=== PATIENT | male | born 1985 | race Caucasian/White ===

== ENCOUNTER 2016-11-25 15:04 | Day surgery (SDC) | payer MEDICAID ==
[~2016-11-25] VITALS: Ht 172.7 cm; Wt 64.5 kg
[~2016-11-25 15:04] MED LIST: BUPIVACAINE/PF-EPI 0.5% 1:200K ONE; CEFAZOLIN 1,000 MG ONE; CEPH-376 PO; IBUP800T PO; METH750T87 PO; ONDANSETRON 2MG/ML, 2ML ONE; PROPOFOL 10 MG/ML, 20ML ONE; TRAM50TA2 PO
[2016-11-25] MEDS ORDERED: LACTATED RINGERS 1,000 ML IV SCH (15:48)
[2016-11-25 15:50] VITALS: BP 111/73
[2016-11-25] MEDS ORDERED: FENTANYL PF 100 MCG/2ML ONE (16:32)
[2016-11-25] MEDS ORDERED: MEPERIDINE/PF 25MG/0.5ML ONE (17:01)
[2016-11-25] MEDS: MEPERIDINE/PF 25MG/0.5ML IVPush PRN ×2 (17:05→17:10)
[2016-11-25] MEDS ORDERED: ACETAMINOPHEN 650 MG/20.3 ML UDC ONE (17:21)
[2016-11-25] MEDS ORDERED: KETOROLAC 30 MG/1 ML ONE (17:21)
[2016-11-25] MEDS ORDERED: OXYcodone 5 MG/5 ML ORAL.SOL UDC ONE (17:21)
[2016-11-25] MEDS ORDERED: FENTANYL PF 100 MCG/2ML IV PRN (17:30)
[2016-11-25] MEDS ORDERED: PROMETHAZINE 25 MG/ML, 1ML IV PRN (17:30)
[2016-11-25] MEDS ORDERED: ACETAMINOPHEN 325 MG TABLET PO PRN (17:30)
[2016-11-25] MEDS ORDERED: KETOROLAC 30 MG/1 ML IV PRN (17:30)
[2016-11-25] MEDS ORDERED: OXYcodone 5 MG/5 ML ORAL.SOL UDC PO PRN (17:30)
== END 2016-11-25 18:23 | disposition home or self-care (01) ==
LOC: OR 15:04
PROVIDERS: ATTEND Orthopaedic Surgery
DX: M60.242 Foreign body granuloma of soft tissue, not elsewhere classified, left hand (principal); Z18.89 Other specified retained foreign body fragments
CPT/HCPCS: 20525; J0690; J1885; J2175; J2405; J2704; J3010; J7120